=== PATIENT | female | born 1995 | race Caucasian/White ===

== ENCOUNTER 2017-01-16 05:06 | Emergency (ER) | payer OTHER ==
[2017-01-16] MEDS ORDERED: LORazepam INJ* 2 MG/ML 1 ML VIAL IM ONE (06:03)
[2017-01-16 07:02] LABS: Hematocrit 38 % (35-47); Hemoglobin 13.1 g/dl (12.0-16.0); Mean Corpuscular HGB Conc 34 g/dl (31-36); Mean Corpuscular Hemoglobin 31 pg (27-31); Mean Corpuscular Volume 89 fL (80-97); Mean Platelet Volume 10 um3 (7.4-10.4); Red Blood Count 4.31 10^6/ul (4.0-5.4); Red Cell Distribution Width 13 % (10.5-15); White Blood Count 8.3 10^3/ul (3.5-10.8)
[2017-01-16 07:17] LABS: ALT 12 U/L (7-52); AST 15 U/L (13-39); Albumin 4.5 g/dL (3.2-5.2); Alkaline Phosphatase 49 U/L (34-104); Anion Gap 7 mmol/L (2-11); BUN/Creatinine Ratio 16.4 (8-20); Blood Urea Nitrogen 9 mg/dL (6-24); CO2 Carbon Dioxide 24 mmol/L (22-32); Calcium 9.5 mg/dL (8.6-10.3); Chloride 104 mmol/L (101-111); EGFR African American 181.2 (>60); EGFR Non-African American 140.9 (>60); Globulin 2.9 g/dL (2-4); Glucose 99 mg/dL (70-100); Potassium 3.1 mmol/L (3.5-5.0); Sodium 135 mmol/L (133-145); Total Protein 7.4 g/dL (6.4-8.9)
[2017-01-16 07:53] LABS: Acetaminophen < 15 mcg/mL; Alcohol < 10 mg/dL (<10); Salicylate < 2.50 mg/dL (<30)
[2017-01-16 08:03] LABS: TSH (Thyroid Stimulating Horm) 4.38 mcIU/mL (0.34-5.60)
--- NOTE | 2017-01-16 10:13 | PN ---
Progress Note - Progress Note Date of Service: 01/16/17 Note: S: Patient seen along with crisis first leveler Kenya Franco Patient steadfastly denies SI and does not believe that [facility] admission would benefit her. Collateral information is reassuring. Patient wishes to follow up acutely with [facility] where she sees Dr. Patiño. O: cooperative with full affect; denies SI or HI; insight and judgment are intact; future-oriented A/P: Unspecified Anxiety DO: will prescribe a 15 day supply of escitalopram 10mg PO qday, which she had been doing well on until self-discontinuation 4 months ago. Patient appropriate for discharge to prompt community care. Will contact [facility] crisis management for further support.
--- NOTE | 2017-01-16 10:43 | ED ---
Ana Parikh Edward, scribed for Ziyad Barrow MD on 01/16/17 at 0743 . Progress - Progress Note Progress Note: Pt signed out by Dr. Hills at shift change. Dr. Eddy came and evaluated Ms. Munoz and thought that she was safe to go home. He started her back on her lexapro and had her F/U at [facility]. She was D/C'd in stable condition with a diagnosis of depression. Course/Dx - Diagnoses Provider Diagnoses: Anxiety The documentation as recorded by the vielkaibAna eller Edward accurately reflects the service I personally performed and the decisions made by Danial gardner Richard L, MD.
[2017-01-16 11:05] VITALS: BP 100/61
--- NOTE | 2017-01-17 04:29 | ED ---
Cody Parikh Rebecca, scribed for Kti Hills MD on 01/16/17 at 0606 . Psychiatric Complaint - HPI Summary HPI Summary: Pt is a 21 y/o F who presents to ED c/o sudden onset panic attack. Notes generalized weakness, SOB, chest pressure and decreased appetite which has been present for "a while." Sx aggravated by academic stress, alleviated by nothing. Denies SIs. Pt reports she has experienced panic attacks previously but not as severely as the one she is currently having. PMHx anxiety for which she takes Lexapro or Wellbutrin that has been worsening since she has been in school. Has never needed a hospital evaluation for anxiety previously. - History Of Current Complaint Chief Complaint: EDGeneral Hx Obtained From: Patient Onset/Duration: Sudden Onset, Still Present Character: Anxious Aggravating Factor(s): Recent Stress - Academic Alleviating Factor(s): Nothing Related History: Positive For: Prior Psychiatric Issues - Anxiety Has Suicidal: Denies: Thoughts Recent Stressor(s): Academics - Allergies/Home Medications Allergies/Adverse Reactions: Allergies Allergy/AdvReac Type Severity Reaction Status Date / Time No Known Allergies Allergy Verified 01/16/17 05:20 PMH/Surg Hx/FS Hx/Imm Hx Endocrine/Hematology History: Denies: Hx Diabetes Cardiovascular History: Denies: Hx Coronary Artery Disease, Hx Hypertension Psychiatric History: Reports: Hx Anxiety Infectious Disease History: No Infectious Disease History: Denies: Traveled Outside the [place] in Last 30 Days - Family History Known Family History: Negative: Cardiac Disease, Hypertension, Diabetes - Social History Occupation: Student Alcohol Use: None Substance Use Type: Reports: None Smoking Status (MU): Never Smoked Tobacco Review of Systems Positive: Other - Generalized weakness. Negative: Fever, Chills Negative: Erythema Negative: Sore Throat Positive: Other - Chest pressure. Negative: Chest Pain Positive: Shortness Of Breath. Negative: Cough Positive: Other - Decreased appetite. Negative: Abdominal Pain, Vomiting, Nausea Negative: dysuria, hematuria Negative: Myalgia, Edema Negative: Rash Neurological: Other - NEGATIVE: dizziness Positive: Anxious, Other - panic attack; NEGATIVE: SIs All Other Systems Reviewed And Are Negative: Yes Physical Exam - Summary Physical Exam Summary: Constitutional: Well-developed, Well-nourished, Alert. (-) Distressed Skin: Warm, Dry HENT: Normocephalic; Atraumatic Eyes: Conjunctiva normal Neck: Musculoskeletal ROM normal neck. (-) JVD, (-) Stridor, (-) Tracheal deviation Cardio: Rhythm regular, rate normal, Heart sounds normal; Intact distal pulses; The pedal pulses are 2+ and symmetric. Radial pulses are 2+ and symmetric. (-) Murmur Pulmonary/Chest wall: Effort normal. (-) Respiratory distress, (-) Wheezes, (-) Rales Abd: Soft, (-) Tenderness, (-) Distension, (-) Guarding, (-) Rebound Musculoskeletal: (-) Edema Lymph: (-) Cervical adenopathy Neuro: Alert, Oriented x3 Psych: Tearful, avoiding eye contact Triage Information Reviewed: Yes Vital Signs On Initial Exam: Initial Vitals Temp Pulse Resp BP Pulse Ox 98.6 F 108 20 111/96 98 01/16/17 05:15 01/16/17 05:15 01/16/17 05:15 01/16/17 05:15 01/16/17 05:15 Vital Signs Reviewed: Yes Diagnostics - Vital Signs Vital Signs Temp Pulse Resp BP Pulse Ox 01/16/17 05:53 89 99 01/16/17 05:52 98 F 88 22 117/79 99 01/16/17 05:51 117/79 01/16/17 05:15 98.6 F 108 20 111/96 98 - Laboratory Result Diagrams: 01/16/17 06:46 01/16/17 06:46 Lab Statement: Any lab studies that have been ordered have been reviewed, and results considered in the medical decision making process. Course/Dx - Course Assessment/Plan: Pt is a 21 y/o F who presents to ED c/o sudden onset panic attack. Notes generalized weakness, SOB, chest pressure and decreased appetite which has been present for "a while." Sx aggravated by academic stress, alleviated by nothing. Denies SIs. Pt reports she has experienced panic attacks previously but not as severely as the one she is currently having. PMHx anxiety for which she takes Lexapro or Wellbutrin that has been worsening since she has been in school. Has never needed a hospital evaluation for anxiety previously. In the ED course pt received Ativan. Pt will be signed out, pending disposition , awaiting [facility]HE. - Differential Dx/Clinical Impression Provider Diagnosis: Anxiety Discharge - Discharge Plan Condition: Stable Disposition: OTHER Discharge Disposition Comment: Pt will be signed out, pending dispo, awaiting [facility]. Referrals: [facility] [Primary Care Provider] - The documentation as recorded by the Cody kilpatrick Rebecca accurately reflects the service I personally performed and the decisions made by me, Kit Hills MD.
== END 2017-01-16 11:05 ==
LOC: ED 05:06
DX: F41.9 Anxiety disorder, unspecified (principal)
CPT/HCPCS: 36415; 80053; 80320; 80329; 84443; 85025; 96372; 99283; G0480; J2060